=== PATIENT | male | born 1980 ===

== ENCOUNTER 2025-05-07 01:24 | Outpatient (REF) | payer SELFPAY ==
[2025-05-07 01:38] VITALS: BP 132/85; PULSE 88; RESP 20; TEMP 36.7; O2SAT 95
--- NOTE | 2025-05-07 01:40 | PC.NURSE ---
pt asked if he wanted to see a provider. Pt responded i am alert and fine.
--- NOTE | 2025-05-07 01:51 | PC.NURSE ---
DUI Kit collected from PD. Kit was sealed and intact. RN opened kit in front of patient and PD. RN collected blood and urine using tubes from DUI Kit. RN placed blood and urine sample into DIU kit. DUI kit sealed and given back to PD. Blood collected at 01:38 and urine collected at 01:40.
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
--- OUTSIDE RECORDS SUMMARY | 2025-05-07 02:05 | XMS_ITS | Encounter Summary ---
Author Organization [facility] Address [address] [place] [address] Care Team Providers Care County Health Officer Name Role Phone Wojciech Landry MD Primary Care Provider Sahil Quijano MD Unavailable [phone] Reason for Visit * Reason Comments Medications Refill Encounter Details Date Type Department Care Team (Late st Contact Info) Description 08/09/2019 Refill [facility] Physicians - Primary Care, [address] [place] [phone] Wojciech Landry MD Medications Refill Social History [...] on file Sexual Orientation Not on file documented as of this encounter Functional Status [...] Author No 12/03/2017 6:39 PM Me nicko Mcnamara, ZHOU * Because of a physical, mental, or [...] documented as of this encounter Visit Diagnoses Not on filedocumented in this encounter Additional Health Concerns Assessment Noted Time PHQ-9 Depression Total Score: 1 03/14/20 18 3:10 PM EDT documented as of this encounter Care Teams County Health Officer Relationship Specialty Start Date End Date Wojciech Landry MD PCP - General Internal Medicine 12/24/15 11/05/22 Sahil Campoverde MD Urology 07/23/22 documented as of this encounter
--- OUTSIDE RECORDS SUMMARY | 2025-05-07 02:05 | XMS_ITS | Clinical Summary ---
Author Organization [facility] Address [address] [place] [address] Care Team Providers Care Police Records Clerk Name Role Phone Sahil Campoverde MD Unavailable [phone] Allergies Active Allergy Reactions Criticality Noted Date Comments Zolpidem Tartrate 07/28/2011 Had myoclonic jerking and parasomnias Had myoclonic jerking on this Medications Melatonin 3 mg Tablet Take 3 mg by mouth. 7 Active losartan (COZAAR) 50 mg Tablet Take 1 Tab by mouth daily. 90 Tab 3 9 Active sildenafiL (VIAGRA) 100 mg Tablet Take 100 mg by mouth as needed for Erectile Dysfunction. Active acetaZOLAMIDE (DIAMOX) 250 mg tablet Take 1 Tablet (250 mg total) by mouth 3 times daily. 30 Tablet 3 2 Active imiquimod (ALDARA) 5 % Cream in Packet apply a thin layer as directed 12 Each 3 2 Active indomethacin (INDOCIN) 50 mg capsule Take 1 Capsule (50 mg) by mouth 3 times daily. 90 Capsule 2 Active colchicine 0.6 mg tablet Take 1 Tablet (0.6 mg) by mouth daily. 30 Tablet 2 Active tadalafiL (Cialis) 20 mg Tablet TAKE 1 TABLET BY MOUTH NEEDED FOR ERECTILE DYSFUNCTION 90 Tablet 3 2 Active Active Problems Problem Noted Date Diagnosed Date Diabetes mellitus type 2 in obese 09/21/2018 Idiopathic acute pancreatitis without infection or necrosis 12/20/2017 Pancreatitis 12/03/2017 Acute nasopharyngitis 10/09/2016 Psychophysiological insomnia 09/23/2016 Bipolar 2 disorder 09/23/2016 Allergic dermatitis due to other chemical produc t 09/07/2016 Essential hypertension 09/07/2016 Family history of early CAD 09/07/2016 Tinea corporis 09/07/2016 Immunizations Immunization Administration Dates Next Due Hep B - Adult 06/28/2009 Hepatitis A - Adult 02/22/2020,08/09/2019 Influenza (whole) 07/10/2020,07/21/2018 MMR 08/09/2019 Td 05/22/2009 Tdap 08/09/2019,09/07/2016,06/17/2012 ,05/22/2009 Family History Medical History Relation Name Comments High Blood Pressure Brother High Blood Pressure Father Stroke Father No Known Problems Mother No Known Problems Sister Relation Name Status Comments Brother Alive Father Alive Mother Alive Sister Alive Social History Tobacco Use Types Packs/Day Years Used Date Smoking Tobacco: Some Days Cigarettes 0.5 5.7 Started: 09/27/2013; Last attempted to quit: 05/24/2019 Smokeless Tobacco: Never Tobacco Cessation:Ready to Q uit: Not Asked; Counseling Given: Not Answered Alcohol Use Standard Drinks/Week Comments Yes 0 (1 standard drink = 0.6 oz pur e alcohol) occ PHQ-2 Answer Date Recorded PHQ-2 Score 0 01/03/2019 Sex and Gender Information Value Date Recorded Sex Assigned at Not on file Legal Sex Male 4:03 PM EDT Gender Identity Not on file Sexual Orientation Not on file Last Filed Vital Signs Vital Sign Reading Time Taken Comments Blood Pressure 149/85 03/09/2023 1:38 AM EDT Pulse 84 03/09/2023 1:38 AM EDT Temperature 36.9 C (98.4 F) 03/09/2023 1:38 AM EDT Respiratory Rate 18 03/09/2023 1:38 AM EDT Oxygen Saturation 97% 03/09/2023 1:38 AM EDT Inhaled Oxygen Concentration - - Weight 115.7 kg (255 lb) 03/09/2023 1:38 AM EDT Height 195.6 cm (6' 5) 03/09/2023 1:38 AM EDT Body Mass Index 30.24 03/09/2023 1:38 AM EDT Plan of Treatment Health Maintenance Due Date Last Done Comments Diabetes Mellitus Eye Exam (Yearly) 1980 Diabetes Mellitus Foot Care (Yearly) 1980 Diabetes Mellitus Microalbumin (Yearly) 1980 COVID-19 Vaccine (#1) 1985 RETIRED: Pneumovax Vaccine (Once) 1998 Diabetes A1c Monitoring 06/12/2020 12/11/2019, 10/20 Lipid Monitoring 08/11/2022 08/11/2021, , 10/20/2018, Additional history exists Renal Monitoring 08/11/2022 08/11/2021, , 10/20/2018, Additional history exists Influenza Vaccination (#1) 2025 07/10/2020, Tetanus Vaccination (Every 10 Years) 08/09/2029 08/09/2019, 09/07/2016, 06/17/2012, Additional history exists Diabetes Mellitus Hemoglobin A1c (Yearly) Discontinued 12/11/2019, 10/20/2018 Influenza Vaccination (Yearly) Discontinued 07/10/2020, 07/21/2018, 07/28/2016 Lipid Screening Discontinued 08/11/2021, 11/25, 10/20/2018, Additional history exists HPV Vaccine Aged Out No longer eligi ble based on patient's age to complete this topic Procedures Procedure Name Priority Date/Time Associated Diagnosis Comments COMPREHENSIVE METABOLIC PANEL Routine 08/11/2021 3:34 PM EST Diabetes mellitus type 2 in obese ([facility]) Essential hypertension LIPID PROFILE Routine 08/11/2021 3:34 PM EST Diabetes mellitus type 2 in obese ([facility]) Essential hypertension HGB, A1C (GLYCOHEMOGLOBIN) Routine 12/11/2019 9:37 AM EDT Essential hypertension Diabetes mellitus type 2 in obese ([facility]) Mixed hyperlipidemia from Last 3 Months or Most Recently Relevant to Health Maintenance Results * LIPID PROFILE (08/11/2021 3:34 PM EST) Chol/HDL Ratio 2.4 0 - 5 [facility] Cholesterol 129 125 - 199 mg/dL [facility] Comment: TOTAL CHOLESTEROL INTERPRETATION: Less than 200 mg/dL Desireable 200-239 mg/dL Borderline Greater or Equal to 240 mg/dL High LDL Calculated 64 0 - 100 mg/dL [facility] Comment: LDL CHOLESTEROL INTERPRETATION: Less than 100 mg/dL Optimal 100-129 mg/dL Near optimal/above optimal 130-159 mg/dL Borderline High 160-189 mg/dL High Greater or Equal to 190 mg/dL Very High HDL 54 40 - 180 mg/dL [facility] Comment: HDL CHOLESTEROL INTERPRETATION: Less than 40 mg/dL Low Greater than 60 mg/dL Desirable Triglycerides 55 0 - 149 mg/dL [facility] Comment: TOTAL TRIGLYCERIDE INTERPRETATION: Less than 150 mg/dL Normal 150-199 mg/dL Borderline HIgh 200-499 mg/dL High Greater or Equal to 500 mg/dL Very High Serum (Serum) 08/11/2021 3:3 4 PM EST 08/11/2021 5:50 PM EST Narrative [facility] - 08/11/2021 6:09 PM EST Has the patient fasted?->Yes us Wojciech Landry MD CHEMISTRY ORDERABLES Final R esult [facility] [address] * (ABNORMAL) COMPREHENSIVE METABOLIC PANEL (08/11/2021 3:34 PM EST) Sodium 139 135 - 146 mmol/L [facility] Potassium 3.9 3.5 - 5.1 mmol/L [facility] Chloride 105 98 - 110 mmol/L [facility] CO2 26 22 - 29 mmol/L [facility] Anion Gap 8 5 - 13 mmol/L [facility] Comment:Anion gap calculatio n does not include potassium (K+) value. BUN 17 7 - 25 mg/dL [facility] Creatinine 0.85 0.50 - 1.30 mg/dL [facility] Glucose 102(H) 71 - 99 mg/dL [facility] GFR MDRD Af Amer 120 See Note [facility] Comment: GFR is estimated using Creatinine, age, gender and race. Patient's values should be interpreted as a trend. Below 90 ml/min/1.73m2, the patient may have renal disease. For additional information: www.kidney.org Calcium 9.2 8.8 - 10.9 mg/dL [facility] GFR MDRD Non Af Amer 99 See Note [facility] Comment: GFR is estimated using Creatinine, age, gender and race. Patient's values should be interpreted as a trend. Below 90 ml/min/1.73m2, the patient may have renal disease. For additional information: www.kidney.org Total Bilirubin 0.5 0.2 - 1.2 mg/dL [facility] AST 30 0 - 40 U/L [facility] ALT 39 0 - 60 U/L [facility] Alkaline Phosphatase 58 33 - 140 U/L [facility] Total Protein 6.9 6.0 - 8.0 g/dL [facility] Albumin 4.2 3.5 - 5.0 g/dL [facility] Globulin 2.7 2.0 - 3.7 g/dL [facility] Albumin/Globulin Ratio 1.6 1.0 - 2.1 [facility] BUN/Creatinine Ratio 20 [facility] Serum (Serum) 08/11/2021 3:3 4 PM EST 08/11/2021 5:50 PM EST us Wojciech Landry MD CHEMISTRY ORDERABLES Final R esult [facility] [address] * HGB, A1C (GLYCOHEMOGLOBIN) (12/11/2019 9:37 AM EDT) Hgb A1C 5.4 4.0 - 5.6 % [facility] Comment: Reference Ranges for Hgb A1c: Increased risk for diabetes: 5.7-6.4% Probable diabetes: >=6.5% Desired control for previously diagnosed diabetics: <7.0% Many conditions can affect the Hgb A1c value including hemolysis, recent transfusion, hemoglobin variants, thalassemias, severe chronic hepatic and renal disease and iron deficiency among others. Please note that results from this assay are invalid for patients with abnormal amounts of Hemoglobin (HbF). Results must be interpreted in the proper clinical context. This method is certified by the National Glycohemoglobin Standardization program (NGSP) and traceable to [facility]. Estimated Average Glucose 108 68 - 114 mg/dL [facility] Whole Blood 12/11/2019 9:37 AM EDT 12/11/2019 6:34 PM EDT us Wojciech Landry MD CHEMISTRY ORDERABLES Final R esult [facility] [address] [place] [address], [facility] from Last 3 Months or Most Recently Relevant to Health Maintenance Insurance [employer] Advance Directives For more information, please contact: [phone] * Full Code (Latest Code Status on File) Date Activated Date Inactivated Comments 12/03/2017 6:41 PM 03/09/2023 1:37 AM Care Teams Police Records Clerk Relationship Specialty Start Date End Date Bindu Sahil Brown MD Urology 07/23/22
--- OUTSIDE RECORDS SUMMARY | 2025-05-07 02:05 | XMS_ITS | Encounter Summary ---
Author Organization [facility] Address [address] [place] [id number] Care Team Providers Care Supervisor Industrial Arts Education Name Role Phone Wojciech Landry MD Primary Care Provider Sahil Quijano MD Unavailable [phone] Reason for Visit * Reason Comments Medications Refill Encounter Details Date Type Department Care Team (Late st Contact Info) Description 02/15/2018 Refill [facility] Physicians - Primary Care, [address] [place] [address] Wojciech Landry MD Medications Refill Social History Tobacco Use Types Packs/Day Years Used Date Smoking Tobacco: Never Smokeless Tobacco: Never Alcohol Use Standard Drinks/Week Comments No 0 (1 standard drink = 0.6 oz pur e alcohol) Sex and Gender Information Value Date Recorded [...] 6:39 PM Me nicko Mcnamara, ZHOU * Do you have difficulty dressing or [...] nicko Mcnamara RN documented in this encounter Miscellaneous Notes * Telephone Encounter - Yvette Crowe RMA - 02/15/2018 3:09 PM EDT Duplicate request. Medication was already called to Pharmacy. documented in this encounter Plan of Treatment Not on file documented as of this encounter Visit Diagnoses Diagnosis Psychophysiological insomnia Persistent disorder of initiating or maintaining sleep documented in this encounter Additional Health Concerns Assessment Noted Time PHQ-9 Depression Total Score: 1 09/23/20 16 11:56 AM EST documented as of this encounter Care Teams Supervisor Industrial Arts Education Relationship Specialty Start Date End Date Wojciech Landry MD PCP - General Internal Medicine 12/24/15 11/05/22 Sahil Campoverde MD Urology 07/23/22 documented as of this encounter
== END 2025-05-07 02:09 ==
LOC: ANHED 01:24
DX: Z02.83 Encounter for blood-alcohol and blood-drug test (principal)
CPT/HCPCS: 99199